=== PATIENT | male | born 1995 | race Caucasian/White ===

== ENCOUNTER 2017-06-12 20:07 | Emergency (ER) | payer SELFPAY ==
--- NOTE | 2017-06-12 21:15 | UC ---
Hand/Wrist HPI - HPI Summary HPI Summary: Right fifth finger dislocated playing football tonight. Deformity at the PIP joint - History Of Current Complaint Chief Complaint: UCUpperExtremity Stated Complaint: R PINKY INJURY Time Seen by Provider: 06/12/17 20:56 Hx Obtained From: Patient ?: No Mechanism Of Injury: Hit by a football Onset/Duration: Sudden Onset Severity Initially: Moderate Severity Currently: Moderate Pain Intensity: 6 Pain Scale Used: 0-10 Numeric Character Of Pain: Aching, Throbbing Aggravating Factor(s): Movement Alleviating Factor(s): Rest, Ice Associated Signs And Symptoms: Positive: Swelling Related History: Dominant Hand Right - Allergies/Home Medications Allergies/Adverse Reactions: Allergies Allergy/AdvReac Type Severity Reaction Status Date / Time ibuprofen Allergy Severe facial/lip Verified 06/12/17 20:42 swelling Home Medications: Home Medications NK [No Home Medications Reported] 06/12/17 [History Confirmed 06/12/17] PMH/Surg Hx/FS Hx/Imm Hx Previously Healthy: Yes - Surgical History Surgical History: Yes Surgery Procedure, Year, and Place: tonsillectomy. appendectomy - Family History Known Family History: Positive: None - Social History Occupation: Student Lives: Dormitory/Roommates Alcohol Use: Occasionally Substance Use Type: None Smoking Status (MU): Never Smoked Tobacco Review of Systems Constitutional: Negative Skin: Negative Eyes: Negative ENT: Negative Respiratory: Negative Cardiovascular: Negative Gastrointestinal: Negative Genitourinary: Negative Motor: Decreased ROM - Right fifth finger Neurovascular: Negative Musculoskeletal: Arthralgia Neurological: Negative Psychological: Negative Is Patient Immunocompromised?: No All Other Systems Reviewed And Are Negative: Yes Physical Exam Triage Information Reviewed: Yes Appearance: Well-Appearing, No Pain Distress, Well-Nourished Vital Signs: Initial Vital Signs Temp 97 F 06/12/17 20:38 Pulse 64 06/12/17 20:38 Resp 17 06/12/17 20:38 BP 131/61 06/12/17 20:38 Pulse Ox 97 06/12/17 20:38 Vital Signs Reviewed: Yes Eye Exam: Normal Eyes: Positive: Conjunctiva Clear ENT Exam: Normal ENT: Positive: Normal ENT inspection, Hearing grossly normal. Negative: Trismus , Muffled voice, Hoarse voice Neck exam: Normal Neck: Positive: Supple, Nontender Respiratory Exam: Normal Respiratory: Positive: Chest non-tender, No respiratory distress, No accessory muscle use Cardiovascular Exam: Normal Cardiovascular: Positive: RRR, Pulses Normal, Brisk Capillary Refill Musculoskeletal Exam: Other Musculoskeletal: Positive: Strength Limited @ - Right fifth finger, ROM Limited @ - Right fifth finger PIP, Edema @ - Right fifth finger Neurological Exam: Normal Psychological Exam: Normal Skin Exam: Normal Diagnostics - Radiology No standard instances Xray Interpretation: Positive (See Comments) Radiology Interpretation Completed By: ED Physician - Dislocated right fifth finger PIP joint, Radiologist Re-Evaluation - Re-Evaluation First Eval Change: Unchanged - Attempted to reduce dislocated right fifth finger without success 2 will transfer patient to ER Hand/Wrist Course/Dx - Course Course Of Treatment: Ice, transfer patient to [facility] emergency department for additional care and treatment of dislocated finger - Differential Dx/Diagnosis Provider Diagnoses: Dislocated PIP of the right fifth finger Discharge - Sign-Out/Discharge Documenting (check all that apply): Discharge/Admit/Transfer - Discharge Plan Condition: Stable Disposition: HOME Referrals: No Primary Care Phys,NOPCP [Primary Care Provider] - Additional Instructions: We're discharging her from the [place] urgent care to go to to the [facility] emergency department we will continue to treat your dislocated right fifth finger - Billing Disposition and Condition Condition: STABLE Disposition: HOME
--- NOTE | 2017-06-12 21:52 | RAD ---
Indication: Fifth finger injury. 3 views of the fifth digit demonstrates pelvic dorsal dislocation middle phalanx of the fifth digit. IMPRESSION: Dorsal dislocation of the middle phalanx of the fifth digit.
== END 2017-06-12 21:18 | disposition home or self-care (01) ==
LOC: UCCORT 20:07
DX: S63.286A Dislocation of proximal interphalangeal joint of right little finger, initial encounter (principal); Y93.61 Activity, american tackle football; Y92.9 Unspecified place or not applicable
CPT/HCPCS: 73140; 99202; G0463